=== PATIENT | female | born 1990 | race Caucasian/White ===

== ENCOUNTER 2018-02-22 14:39 | Emergency (ER) | payer SELFPAY ==
[~2018-02-22] VITALS: Ht 165.1 cm; Wt 57.0 kg
[~2018-02-22 14:39] MED LIST: AMOX875 PO; KLON2TAB PO; LORTA10 PO; NAPR500 PO
[2018-02-22 14:46] VITALS: BP 116/59; PULSE 119; RESP 22; TEMP 99.2; O2SAT 98
--- NOTE | 2018-02-22 14:54 | PD ---
HPI Chief Complaint: OD/ Ingestion Time Seen by Provider: 14:46 Travel History International Travel<30 days: No Contact w/Intl Traveler<30days: No Traveled to known affect area: No History of Present Illness HPI 27-year-old female with history of IV drug abuse, brought in by ambulance after being found in respiratory arrest. The patient was given 2 mg of IM Narcan by paramedics with significant improvement in respiratory mental status. The patient admits to taking 2 mg of Xanax earlier today followed by IV Dilaudid 8 mg. She states that she takes Dilaudid daily, and cannot understand how she may have overdosed. She denies suicidal or homicidal ideation. On my assessment she states she feels well. No physical complaints. PFSH Past Medical History Depression: Yes Cancer: No Diminished Hearing: No Psychiatric: Yes Seizures: No Thyroid Disease: No ?: Not : 0 Past Surgical History Other Surgery: No Social History Alcohol Use: No Tobacco Use: Yes (PPD) Substance Use: Yes Allergies-Medications (Allergen,Severity, Reaction): Coded Allergies: No Known Allergies (Verified , 12/24/12) Reported Meds & Prescriptions Reported Meds & Active Scripts Active Naprosyn (Naproxen) 500 Mg Tab 500 Mg PO BIDPRN Amoxil (Amoxicillin) 875 Mg Tab 875 Mg PO BID Reported Klonopin (Clonazepam) 2 Mg Tab 2 Mg PO BID Lortab 10/325 Tab (Hydrocodone-Acetaminophen) 10 Mg/325 Mg Tab 1 Tab PO Q6HPRN Review of Systems Except as stated in HPI: all other systems reviewed are Neg Physical Exam Narrative GENERAL: Well-developed, well-nourished, awake, alert, GCS 15, no apparent distress. SKIN: Focused skin assessment warm/dry. Track guerra to bilateral upper and lower extremities without warmth erythema. HEAD: Atraumatic. Normocephalic. EYES: Pupils equal and round. No scleral icterus. No injection or drainage. ENT: No nasal bleeding or discharge. Mucous membranes pink and moist. NECK: Trachea midline. No JVD. CARDIOVASCULAR: Tachycardic, rate 112, regular. RESPIRATORY: No accessory muscle use. Clear to auscultation. Breath sounds equal bilaterally. GASTROINTESTINAL: Abdomen soft, non-tender, nondistended. MUSCULOSKELETAL: No obvious deformities. No clubbing. No cyanosis. No edema. NEUROLOGICAL: Awake and alert. No obvious cranial nerve deficits. Motor grossly within normal limits. Normal speech. PSYCHIATRIC: Appropriate mood and affect; insight and judgment normal. Data Data Last Documented VS Vital Signs Date Time Temp Pulse Resp B/P (MAP) Pulse Ox O2 Delivery O2 Flow Rate FiO2 02/22/18 14:52 Room Air 02/22/18 14:46 99.2 119 22 116/59 (78) 98 MDM Medical Decision Making Medical Screen Exam Complete: Yes Emergency Medical Condition: Yes Differential Diagnosis Unintentional opioid overdose, polysubstance abuse Narrative Course Vital signs reviewed. The patient was observed in the emergency department for about an hour, at which time she states she wants to leave. Her heart rate is normalized. No signs of infection. This was an unintentional opioid overdose. She denies suicidal or homicidal ideation. She is stable for discharge home. She will be given the information to [facility] to follow-up with this week. Diagnosis Primary Impression: Opioid overdose Qualified Codes: T40.2X1A - Poisoning by other opioids, accidental ( unintentional), initial encounter Referrals: [facility] day Disposition: 01 DISCHARGE HOME Condition: Stable Wayne Vargas MD February 22, 2018 14:54
--- NOTE | 2018-02-23 17:38 | EKG ---
Date Performed: 02/22/2018 Time Performed: 14:49:15 PTAGE: 27 years EKG: SINUS TACHYCARDIA ABNORMAL RHYTHM ECG PREVIOUS TRACING : 12/24/2012 09.19 Compared to previous tracing, rate faster DOCTOR: Cathy Levy Interpretating Date/Time 02/23/2018 17:37:42
== END 2018-02-22 16:42 | disposition home or self-care (01) ==
LOC: NEPE 14:39
DX: T40.2X1A Poisoning by other opioids, accidental (unintentional), initial encounter (principal); F32.9 Major depressive disorder, single episode, unspecified; R94.31 Abnormal electrocardiogram [ECG] [EKG]; F17.210 Nicotine dependence, cigarettes, uncomplicated
CPT/HCPCS: 93005; 99283